=== PATIENT | male | born 1950 | race Caucasian/White ===

== ENCOUNTER → 2020-08-09 13:46 | Outpatient (CLI) | payer MEDICAID, SELFPAY ==
--- NOTE | 2020-08-09 13:58 | XR_ITS ---
PROCEDURE: XR HIP LT 2-3V W/PELVIS CLINICAL INDICATION: LT hip pain COMPARISON: No exams were available for comparison FINDINGS: There is cortical collapse of the left femoral head with osteoarthritic changes of the left hip and subchondral cystic changes. There is mild lateral subluxation of the left femoral head by approximately 10 mm. Subchondral cystic and sclerotic changes are present involving the left femoral head. The right hip has an unremarkable appearance. IMPRESSION: Cortical collapse of the left femoral head superiorly with subchondral cystic changes sclerosis and lateral subluxation of the hip. This could be an end stage avascular necrosis versus severe osteoarthritic change of the hip with cortical collapse. Dictated by: Kareem Harris MD 08/09/2020 15:57 Kareem Harris MD in [facility] 08/09/2020 15:57
== END ==
LOC: RAD 13:53
PROVIDERS: PCP Family Medicine; Visit Provider Orthopaedic Surgery
DX: M25.552 Pain in left hip (principal)
CPT/HCPCS: 73502

== ENCOUNTER → 2021-01-03 13:33 | Outpatient (CLI) | payer MEDICARE, SELFPAY ==
--- NOTE | 2021-01-03 13:33 | CT_ITS ---
PROCEDURE: CT HIP LT WO CON CLINICAL HISTORY: left hip preop for total hip arthroplasty COMPARISON: CR XR HIP LT 2-3V W/PELVIS from 08/09/2020 CR XR HIP LT 2-3V W/PELVIS from 01/03/2021 TECHNIQUE: Axial images obtained with sagittal and coronal reformats. All CT scans at the facility use one or more dose reduction, viz: automated exposure control, ma/kV adjustment per patient size (including targeted exams where dose is matched to indication, i.e. head), or iterative reconstruction technique. FINDINGS: The CT bone windows reveal severe flattening and deformity of the left femoral head and severe narrowing of the joint space with subcortical cystic degenerative changes. The large acetabular subcortical cysts are noted measuring up to 3 centimeters in greatest length. And there is surrounding osteopenia. IMPRESSION: Left femoral head collapse and subluxation with poor structural integrity of the surrounding bony structures. Dictated by: Julia Chase MD 01/03/2021 18:50 Julia Chase MD in [facility] 01/03/2021 18:50
--- NOTE | 2021-01-03 14:14 | XR_ITS ---
PROCEDURE: XR HIP LT 2-3V W/PELVIS CLINICAL INDICATION: LT hip replacement pre-op COMPARISON: CR XR HIP LT 2-3V W/PELVIS from 08/09/2020 FINDINGS: There is severe far advanced osteoarthritic change left hip with flattening of the femoral head with partial collapse and prominent subchondral cystic change and overall sclerosis and slight lateral subluxation of the femoral head in relationship to the roof of the acetabulum. The changes are basically stable from the previous pelvis film 08/09/2020 the right hip is normal. The SI joints and symphysis pubis appear normal. 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 Manish Mabry MD 01/03/2021 17:35 Dr. Manish Mabry MD in [facility] 01/03/2021 17:35
[2021-01-03 17:15] LABS: Basophils # 0.1 K/mm3 (0-0.2); Basophils % 0.5 % (0.1-2.0); Eosinophils # 0.1 K/mm3 (0.0-0.4); Eosinophils % 1.6 % (0.1-12.0); Hematocrit 39.7 % (42.0-52.0); Hemoglobin 12.9 g/dL (14.1-18.0); Lymphocytes # 2.2 K/mm3 (0.7-4.5); Lymphocytes % 25.4 % (10-50); Mean Corpuscular HGB Conc 32.6 g/dL (31.8-35.4); Mean Corpuscular Hemoglobin 28.5 pg (27.0-31.2); Mean Corpuscular Volume 87.4 fl (80-94); Mean Platelet Volume 7.4 fl (7.4-10.4); Monocytes # 0.6 K/mm3 (0.1-1.0); Monocytes % 6.9 % (1.7-9.3); Neutrophils # 5.6 K/mm3 (1.8-7.8); Neutrophils % 65.5 % (37.0-80.0); Platelet Count 276 K/mm3 (142-424); Red Blood Count 4.54 M/mm3 (4.60-6.20); Red Cell Distribution Width 13.8 % (11.5-17.5); White Blood Count 8.6 K/mm3 (4.8-10.8)
[2021-01-03 17:19] LABS: Activated Partial Thrombo Time 25.8 seconds (23.6-34.0); INR 1.03 (0.9-1.1); Prothrombin Time 11.4 seconds (9.4-11.8)
[2021-01-03 20:20] LABS: Chloride 103 mmol/L (98-107); Sodium 137 mmol/L (136-145)
[2021-01-03 20:23] LABS: Blood Urea Nitrogen 21 mg/dl (9-20); Estimated Glomerular Filt Rate 74 ml/min (>60); GFR (African American) 89 ML/MIN (>60)
[2021-01-03 20:24] LABS: Calcium 10.2 mg/dl (8.4-10.2); Carbon Dioxide 28 mmol/L (22.0-30.0); Glucose 99 mg/dl (74-100)
== END ==
LOC: RAD 13:33
PROVIDERS: PCP Family Medicine; Visit Provider Orthopaedic Surgery
DX: Z01.818 Encounter for other preprocedural examination; M16.12 Unilateral primary osteoarthritis, left hip; Z51.81 Encounter for therapeutic drug level monitoring
CPT/HCPCS: 36415; 73502; 73700; 80048; 85025; 85610; 85730; 87081

== ENCOUNTER → 2021-01-03 14:45 | Outpatient (CLI) | payer MEDICARE, SELFPAY | PROVIDERS: PCP Family Medicine; Visit Provider Orthopaedic Surgery | DX: Z01.818 Encounter for other preprocedural examination (principal) ==

== ENCOUNTER → 2021-01-06 09:40 | Outpatient (CLI) | payer MEDICARE, SELFPAY | PROVIDERS: PCP Family Medicine; Visit Provider Orthopaedic Surgery | DX: Z01.818 Encounter for other preprocedural examination (principal); Z20.822 Contact with and (suspected) exposure to COVID-19; M16.12 Unilateral primary osteoarthritis, left hip | CPT/HCPCS: U0003 ==

== ENCOUNTER 2021-01-07 06:01 | Day surgery (SDC) | payer MEDICARE, SELFPAY ==
[2020-12-31 13:07] VITALS: BMI 34.2
--- NOTE | 2021-01-06 14:49 | SW/DCPLANNER ---
Addendum entered by Carmelita Zhang 01/13/21 12:56: Jose with [facility] has stated that she has spoke with patient and will take him once he is medically stable for discharge. Patients surgery is planned for tomorrow. Original Note: I have attempted to contact this patient regarding total hip surgery tomorrow. Patient did not answer at this time. I will follow up with patient at time of admission.
[2021-01-07] VITALS (8 sets, daily range): BP systolic 153–189; BP diastolic 66–91; PULSE 66–78; RESP 18; TEMP 36.6–37.1; O2SAT 97–99
[2021-01-07 07:13] LABS: Chloride 108 mmol/L (98-107); Sodium 140 mmol/L (136-145)
[2021-01-07 07:16] LABS: Blood Urea Nitrogen 21 mg/dl (9-20); Calcium 9.7 mg/dl (8.4-10.2); Carbon Dioxide 25 mmol/L (22.0-30.0); Creatinine Clearance Estimated 113 mL/min (50-200); Estimated Glomerular Filt Rate 83 ml/min (>60); GFR (African American) 101 ML/MIN (>60); Glucose 118 mg/dl (74-100)
--- NOTE | 2021-01-07 07:17 | HMH.ANESCL ---
[facility] Anesthesia Checklist - Patient Identification Patient Identification: Arm Band, Verbal (Name & ) - Structural Data Admitted From: Home Planned Operative Procedure/s: left total hip Consent for Planned Operative Procedure(s) Verified: Yes Verified Documents: Surgical Consent - Additional verifications Anesthesia Reactions: No Hx Blood Transfusions: No Blood Transfusion Reaction: No - Anesthesia Plan Anesthesia Risk discussed: Yes Anesthesia Plan: Verified ASA Class: III Anesthesia Type: MAC w/Spinal [facility] History I have reviewed the patient's past medical history: Yes Medical History: Reports:: Hyperlipidemia, Hypertension Denies:: Cancer, Diabetes Mellitus Type 1, Diabetes Mellitus Type 2, MRSA, Seizures *Have you ever received a pneumonia vaccine?: No *Have you received a flu vaccine this season?: No Other Medical History: Reports: Arthritis. Denies: Blood Transfusion Reaction Anesthesia experience/problems:: none Other Surgeries: Yes: No Previous Surgery Amputation: No Fractures: No - *Social History Last grade of school completed: High school graduate Smoking Status: Current every day smoker Tobacco Type: cigarettes # Packs/Day (cigarettes): 1 Alcohol Intake: never Substance Use Type: denies use *Occupational Status:: retired *Travel in the last 8 weeks: None Family Hx:: No significant family history
[2021-01-07 07:22] LABS: C-Reactive Protein 55.1 mg/L (0-4); Erythrocyte Sedimentation Rate 54 mm/hr (0-20)
--- NOTE | 2021-01-07 08:45 | P.PCN_ITS ---
[facility] Procedure Note Procedure Note:: Procedure Note: Date of Procedure: January 07, 2021 Pre-procedure diagnosis: degenerative joint disease L hip Post-procedure diagnosis: same Procedure: L hip aspiration Performed by: Roula Hendrix MD Final Inspector Balance Wheel/s: none Anesthesia: local; 5cc 1% lidocaine w/o epinephrine Estimated Blood Loss: none History of present illness: 69-year-old gentleman with severe DJD L hip. He reports chronic pain in this hip, and was previously seen by a another surgeon who recommended hip replacement, but said he would not do this in a smoker. The patient reports a history of hypertension, which he takes medication for. No history of RA or other autoimmune disease, no immunosuppresive medications. Lisinopril ?hydrochlorothiazide is his only medication. He does occasionally take meloxicam as needed for discomfort. No known drug allergies. 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 He does occasionally consume alcohol. He has never had a steroid injection in the hip. Denies chest pain or shortness of breath with exertion. Denies any recent fevers or chills, no chest pain or shortness of breath. No known exposure to COVID-19 or any recent respiratory infections or symptoms. No previous infection reported in this hip. Pre-operative XR showed severe destruction of the femoral head and erosion into the acetabulum, and CT scan revealed large cavitary defects of the superior acetabulum. He was brought in for LORNA this morning but pre-operative ESR/CRP were elevated and the decision was made to postpone surgery until infection could be ruled out. The decision was made to instead sterilely prep the hip and perform fluoroscopic-guided aspiration of the hip and send the fluid for studies to rule out infection. I discussed the risks of the procedure with the patient, including bleeding, bruising or swelling at the aspiration site. The patient vocalized understanding and provided informed consent for the procedure. Procedure Note: The patient was identified in preoperative holding and consent reviewed and signed by both myself and the patient, all questions were answered. The patient was placed supine on the fluoroscopy table in the operative room and the L hip exposed. The anterior groin/hip and proximal thigh were prepped with chlorhexidine. Timeout was performed. Next, the c-arm was brought in over the patient?s hip and a picture taken to confirm adequate visualization of the joint. I donned a pair of sterile surgical gloves; the remainder of the procedure was performed in a sterile fashion. An 18G spinal needle was held over the hip to approximate my desired entry point on the skin, on a line between the ASIS and the greater trochanter. Once this was established, a 25G needle was used to infiltrate injection site and estimated needle track with 5cc 1% lidocaine w/o epinephrine. Once the aspiration site was anesthetized, the spinal needle was advanced through the same puncture site and deeper towards the hip joint, aimed medially at a 30 degree angle. Using fluoro, it was confirmed that the needle was advanced until it was at the level of the femoral neck. The stylus was removed from the spinal needle and a sterile 20cc syringe attached. 20cc of bloody fluid was aspirated from the L hip. The spinal needle was removed from the hip and a band-aid was placed over the injection site. The fluid was placed into a sterile specimen cup, where it will be sent for cell count with differential, gram stain, culture and crystals. Specimens: none Condition/Disposition: good / home Complications: none
--- NOTE | 2021-01-07 08:59 | XR_ITS ---
PROCEDURE: XR HIP LT 2-3V W/PELVIS CLINICAL INDICATION: LT HIP ASP IN O.R. COMPARISON: CR XR HIP LT 2-3V W/PELVIS from 01/03/2021 FINDINGS: Fluoroscopy time: 9 seconds. Single images submitted showing a needle in place overlying the anterior aspect of the hip joint. IMPRESSION: Intraoperative hip aspiration with fluoro guidance Dictated by: Kareem Harris MD 01/07/2021 16:55 Kareem Harris MD in [facility] 01/07/2021 16:55
[2021-01-08 15:10] LABS: Color,Fluid Red (Yellow); Eosinophils,Fluid 0 % (Not Estab.); Lymphocytes,Fluid 16 % (Not Estab.); Macrophages,Fluid 9 % (Not Estab.); Nucleated cells, Syn. Fluid 271 cells/uL (0-200); Polys,Fluid 75 % (Not Estab.); RBC,Fluid 138000 /uL (Not Estab.)
== END 2021-01-07 09:10 | disposition home or self-care (01) ==
PROVIDERS: PCP Family Medicine; Visit Provider Orthopaedic Surgery
DX: M17.12 Unilateral primary osteoarthritis, left knee; Z79.899 Other long term (current) drug therapy; I10 Essential (primary) hypertension; Z72.0 Tobacco use
CPT/HCPCS: 20610; 73502; 76000; 80048; 85651; 86140; 86850; 87070; 87205; 89051

== ENCOUNTER → 2021-01-13 11:54 | Outpatient (CLI) | payer MEDICARE, SELFPAY ==
[2021-01-13 11:58] LABS: Microscopic, Urine URINE MICROSCOPIC (MICROSCOPIC)
[2021-01-13 12:51] LABS: Appearance,Urine CLEAR (Clear); Bilirubin,Urine Negative (Negative); Blood, Urine Negative (Negative); Color,Urine YELLOW (Yellow); Glucose,Urine (UA) Negative (Negative); Ketones,Urine Negative (Negative); Leukocyte Esterase,Urine Negative (Negative); Nitrate,Urine Negative (Negative); Protein,Urine 1+ (Negative); Specific Gravity, Urine 1.025 (1.005-1.030); Urobilinogen,Urine 0.2 EU/dl (0.2)
[2021-01-13 13:02] LABS: Bacteria,Urine Trace /lpf; Squamous Epithelial Cell,Urine Occasional #/hpf (0-5)
[2021-01-13 13:06] LABS: Prothrombin Time 10.7 seconds (9.4-11.8)
[2021-01-13 13:16] LABS: C-Reactive Protein 2.7 mg/L (0-4)
[2021-01-13 14:04] LABS: Erythrocyte Sedimentation Rate 26 mm/hr (0-20)
== END ==
PROVIDERS: Visit Provider Orthopaedic Surgery
DX: M16.9 Osteoarthritis of hip, unspecified (principal); Z01.818 Encounter for other preprocedural examination; I82.409 Acute embolism and thrombosis of unspecified deep veins of unspecified lower extremity; Z48.89 Encounter for other specified surgical aftercare; U07.1 COVID-19; Z20.822 Contact with and (suspected) exposure to COVID-19
CPT/HCPCS: 36415; 81001; 85610; 85651; 86140; 86850; U0003

== ENCOUNTER 2021-02-04 06:30 | Observation (INO) | payer MEDICARE, SELFPAY ==
[2021-01-09 11:13] VITALS: BMI 34.2
--- NOTE | 2021-01-14 07:43 | SUR.PREOP ---
PT ARRIVED AT 0600 FOR SX , CAROLINE DE GUZMAN CALLED LAB FOR PCR 'PENDING' RESULT SPOKE WITH JOSELUIS. PCR WAS POSITIVE . CAROLINE DE GUZMAN NOTIFIED LISANDRA GAMBINO AND DR VAZQUEZ. DR VAZQUEZ SPOKE WITH PT.
--- NOTE | 2021-01-14 07:57 | PC.NURSE ---
604 RECEIVED A CALL FROM HOLLY IN LAB.SHE STATED THAT JOSÉ MANUEL MACHADO FROM [facility] HAD CALLED HER REQUESTING RESULTS ON COVID SWAB ON THIS PT BECAUSE IN COMPUTER THE RESULTS READ PENDING. LAB TOLD PREOP THAT THE RESULT WAS POSITIVE.JOSELUIS THEN CALLED THIS NURSE LETTING HER KNOW WHAT HAD HAPPENED CONCERNING CALL FROM [facility] .SHE ALSO TOLD THIS NURSE THAT PT IS ALREADY HERE SITTING IN [facility]. THIS NURSE CALLED AND SPOKE TO JOSÉ MANUEL FROM [facility] AND SHE STATED THAT SHE HAD CALLED AND THAT DR. VAZQUEZ WAS GOING TO PLACE A CALL TO AND DISCUSS THIS CASE. SPOKE WITH JOSÉ MANEUL FEW MINUTES LATER AND SHE STATED SHE HAD TAKEN PT TO NEGATIVE PRESSURE ROOM AND THAT WAS TALKING TO PT
[2021-02-04] VITALS (22 sets, daily range): BP systolic 129–168; BP diastolic 50–83; PULSE 65–85; RESP 12–19; TEMP 36.1–37; O2SAT 90–99; BMI 34.9
[2021-02-04 07:18] LABS: Basophils # 0.1 K/mm3 (0-0.2); Basophils % 0.6 % (0.1-2.0); Eosinophils # 0.3 K/mm3 (0.0-0.4); Eosinophils % 3.5 % (0.1-12.0); Hematocrit 37.4 % (42.0-52.0); Hemoglobin 12.2 g/dL (14.1-18.0); Lymphocytes # 1.9 K/mm3 (0.7-4.5); Lymphocytes % 23.3 % (10-50); Mean Corpuscular HGB Conc 32.5 g/dL (31.8-35.4); Mean Corpuscular Hemoglobin 28.2 pg (27.0-31.2); Mean Corpuscular Volume 86.5 fl (80-94); Mean Platelet Volume 7.9 fl (7.4-10.4); Monocytes # 0.8 K/mm3 (0.1-1.0); Monocytes % 9.5 % (1.7-9.3); Neutrophils # 5.2 K/mm3 (1.8-7.8); Neutrophils % 63.1 % (37.0-80.0); Platelet Count 284 K/mm3 (142-424); Red Blood Count 4.32 M/mm3 (4.60-6.20); Red Cell Distribution Width 13.5 % (11.5-17.5); White Blood Count 8.3 K/mm3 (4.8-10.8)
[2021-02-04 07:33] LABS: Anion Gap 12.5 mEq/L (5-15); Blood Urea Nitrogen 24 mg/dl (9-20); Calcium 10.1 mg/dl (8.4-10.2); Carbon Dioxide 31 mmol/L (22.0-30.0); Chloride 99 mmol/L (98-107); Creatinine Clearance Estimated 103 mL/min (50-200); Estimated Glomerular Filt Rate 66 ml/min (>60); GFR (African American) 80 ML/MIN (>60); Glucose 120 mg/dl (74-100); Potassium 4.5 mmoL/L (3.5-5.1); Sodium 138 mmol/L (136-145)
--- NOTE | 2021-02-04 09:16 | SUR.OPER ---
Prior to arrival to OR,Pt had presence of decubitis R buttox in process of healing with L buttox with slight opening.
--- NOTE | 2021-02-04 09:24 | SUR.OPER ---
Pt arrived to the OR with presence of decubitis to bilateral buttocks. L buttock had approximately a 1cm decubitus in stages of healing, not currently open. R buttock had decubitus with small 1.25cm opening. No drainage or tunneling noted.
--- NOTE | 2021-02-04 09:53 | P.PN_ITS ---
[facility] Anesthesia Checklist - Patient Identification Patient Identification: Arm Band - Structural Data Admitted From: Home Planned Operative Procedure/s: Left LORNA Consent for Planned Operative Procedure(s) Verified: Yes - Additional verifications Anesthesia Reactions: No Hx Blood Transfusions: No Blood Transfusion Reaction: No - Airway Assessment C-Spine Mobility Assessed: Yes TMJ Mobility Assessed: Yes Dentition: Poor Dentition - Neurological Assessment Level of Consciousness: Awake, Alert Hx Seizures: No Numbness or tingling in extremities: No - Anesthesia Plan Anesthesia Risk discussed: Yes (Pt. agrees to proceed with SAB and GETA if needed) ASA Class: III Anesthesia Type: Spinal [facility] History Medical History: Reports:: Hyperlipidemia, Hypertension Denies:: Cancer, Diabetes Mellitus Type 1, Diabetes Mellitus Type 2, Internal Pacemaker, MRSA, Seizures *Have you ever received a pneumonia vaccine?: No *Have you received a flu vaccine this season?: No Other Medical History: Reports: Arthritis. Denies: Blood Transfusion Reaction Anesthesia experience/problems:: NAC Other Surgeries: Yes: No Previous Surgery. No: Pacemaker Amputation: No Fractures: No - *Social History Last grade of school completed: High school graduate Smoking Status: Current every day smoker Tobacco Type: cigarettes # Packs/Day (cigarettes): 1 Alcohol Intake: former Substance Use Type: denies use *Occupational Status:: retired Housing: house *Travel in the last 8 weeks: None Family Hx:: No significant family history
--- NOTE | 2021-02-04 11:22 | XR_ITS ---
PROCEDURE: XR HIP LT 2-3V W/PELVIS CLINICAL INDICATION: s/p L LORNA COMPARISON: CR XR HIP LT 2-3V W/PELVIS from 01/03/2021 CR XR HIP LT 2-3V W/PELVIS from 01/07/2021 FINDINGS: The prosthetic acetabulum is well seated within the [place] acetabulum and anchored by 2 threaded screws. The hip arthroplasty is well seated within the acetabulum and the medullary stem is in good position in the proximal femur. Minimal postsurgical soft tissue changes are noted. IMPRESSION: Satisfactory postop appearance left total hip arthroplasty Dictated by: Dr. Manish Mabry MD 02/04/2021 12:22 Dr. Manish Mabry MD in [facility] 02/04/2021 12:22
--- NOTE | 2021-02-04 11:29 | HMH.ORTHHP ---
*Admission Date: 02/04/21 *Reason for consult:: s/p L LORNA *History of present illness: 70-year-old gentleman with chronic L hip pain. He has had left hip pain on and off for several years but has recently increased in severity over the last 6 months. He believes he is ready for hip replacement, as he has been told he has significant arthritis of the hip in the past. He saw another surgeon who recommended hip replacement, but said he would not do this in a smoker. The patient reports a history of hypertension, which he takes medication for. He does occasionally take meloxicam as needed for discomfort. No known drug allergies. 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 He has never had a steroid injection in the hip. Denies chest pain or shortness of breath with exertion. He has received medical clearance by his primary care physician (Thais) and quality assurance technician (Lesa). He has been cleared to stop his aspirin preoperatively by his quality assurance technician. His hip pain has made it increasingly difficult to not only stand but to walk or perform any activities of daily living. He has had to start using a wheelchair. Denies any recent fevers or chills, no chest pain or shortness of breath. No known exposure to COVID-19 or any recent respiratory infections or symptoms. He is , lives with adult children. He smokes 1/2 to 1 pack of cigarettes per day and has for the last 30 years. He also uses smokeless tobacco but denies recreational drug use. He does occasionally consume alcohol. I discussed the risks and benefits of the surgery at length, in addition to the expected perioperative course, hospital stay and need for postoperative physical therapy. We also discussed the risks of surgery, which include but are not limited to: bleeding, infection, intraoperative fracture, neurovascular damage including postoperative foot drop, periprosthetic fracture postoperatively, postoperative hip dislocation, need for possible revision surgery in the future, wound healing complications due to his status as a smoker, and the possibility of continued pain and/or disability despite surgery. The patient vocalized understanding and informed consent was obtained. Surgery was initially scheduled for 01/07/21 but cancelled to work up for infection as his inflammatory markers were significantly elevated. L hip aspiration revealed no infection with analysis of both cell count and culture. He was rescheduled for 01/14/21 but his pre-operative covid swab was positive. He has had no symptoms of covid infection and quarantined for 2 weeks; rescheduled for L LORNA today. L LORNA was performed without complication. EBL 200cc, IVF 2750cc (LR), 500cc colloid, UOP 400cc. Received TXA x2 doses, 2g Ancef + 2g Vanc. Pre-op MRSA swab positive, patient thinks he took his bactroban and used hibiclens wash. [facility] History I have reviewed the patient's past medical history: Yes Medical History: Reports:: Hyperlipidemia, Hypertension Denies:: Cancer, Diabetes Mellitus Type 1, Diabetes Mellitus Type 2, Internal Pacemaker, MRSA, Seizures *Have you ever received a pneumonia vaccine?: No *Have you received a flu vaccine this season?: No Other Medical History: Reports: Arthritis. Denies: Blood Transfusion Reaction Anesthesia experience/problems:: NAC Other Surgeries: Yes: No Previous Surgery. No: Pacemaker Amputation: No Fractures: No - *Social History Last grade of school completed: High school graduate Smoking Status: Current every day smoker Tobacco Type: cigarettes # Packs/Day (cigarettes): 1 Alcohol Intake: former Substance Use Type: denies use *Occupational Status:: retired Housing: house *Travel in the last 8 weeks: None Family Hx:: No significant family history Review of Systems - Review of Systems Review of systems:: pertinent systems reviewed and negative unless documented below Meds Home Medications Medication Instructions Recorded Confirmed Ty
--- NOTE | 2021-02-04 11:44 | HMH.OPNOTE ---
Date of procedure: 02/04/21 Pre-op Diagnosis:: L hip degenerative joint disease Post-op Diagnosis:: L hip degenerative joint disease Procedure performed:: L total hip arthroplasty Surgeon:: Roula Hendrix MD Bed Machine Operator(s):: CHELO Jeffers SEARCH ENGINE MARKETING MANAGER:: Other (Rene Iyer) Anesthesia: GETA, spinal Estimated blood loss (mL): 200 Clinical Note:: 70-year-old gentleman with chronic L hip pain. He has had left hip pain on and off for several years but has recently increased in severity over the last 6 months. He believes he is ready for hip replacement, as he has been told he has significant arthritis of the hip in the past. He saw another surgeon who recommended hip replacement, but said he would not do this in a smoker. The patient reports a history of hypertension, which he takes medication for. He does occasionally take meloxicam as needed for discomfort. No known drug allergies. 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 He has never had a steroid injection in the hip. Denies chest pain or shortness of breath with exertion. He has received medical clearance by his primary care physician (Thais) and data entry specialist (Lesa). He has been cleared to stop his aspirin preoperatively by his data entry specialist. His hip pain has made it increasingly difficult to not only stand but to walk or perform any activities of daily living. He has had to start using a wheelchair. Denies any recent fevers or chills, no chest pain or shortness of breath. No known exposure to COVID-19 or any recent respiratory infections or symptoms. He is , lives with adult children. He smokes 1/2 to 1 pack of cigarettes per day and has for the last 30 years. He also uses smokeless tobacco but denies recreational drug use. He does occasionally consume alcohol. I discussed the risks and benefits of the surgery at length, in addition to the expected perioperative course, hospital stay and need for postoperative physical therapy. We also discussed the risks of surgery, which include but are not limited to: bleeding, infection, intraoperative fracture, neurovascular damage including postoperative foot drop, periprosthetic fracture postoperatively, postoperative hip dislocation, need for possible revision surgery in the future, wound healing complications due to his status as a smoker, and the possibility of continued pain and/or disability despite surgery. The patient vocalized understanding and informed consent was obtained. Surgery was initially scheduled for 01/07/21 but cancelled to work up for infection as his inflammatory markers were significantly elevated. L hip aspiration revealed no infection with analysis of both cell count and culture. He was rescheduled for 01/14/21 but his pre-operative covid swab was positive. He has had no symptoms of covid infection and quarantined for 2 weeks; rescheduled for L LORNA today. Operative findings:: IMPLANTS: Acetabulum = Redapt cup 60mm, 2 screws (25mm + 30mm) OR3O dual mobility bearing; 60mm oxinium liner, 46mm poly insert, 28 +4 oxinium head Femur = Polar stem size 5 (press fit) Operative note:: The patient was identified in preoperative holding and the L hip signed by myself. Consent was verified with the patient and all questions answered. He was then taken to the operating room where spinal anesthesia was administered by SEARCH ENGINE MARKETING MANAGER while the patient remained on his cart. After the spinal was completed he was transferred to the OR table; spinal did not appear to take and he still had sensation below the waist, so he was converted to general endotracheal anesthesia. Once the patient was asleep he was placed in the right lateral decubitus position; all bony prominences were well-padded. 2g Ancef and 2g vancomycin were infused intravenously. SCD was placed on the bottom non-operative leg, and the left hip was prepped and draped in the usual sterile fashion. Timeout was performed, identifying the correct pat
--- NOTE | 2021-02-04 11:53 | HMH.ANESI ---
[facility] Anesthesia Record Part I Intake, IV Amount: 3,250 Estimated blood loss (mL): 200 Urine output (mL): 400 Blood Pressure: 155/67 SaO2: 95 Pulse Rate: 77 Respiratory Rate: 12 Temperature: 97 F Patient is:: Drowsy, Stable Stable to PACU at:: 11:24
--- NOTE | 2021-02-04 12:18 | PC.NURSE ---
Pt arrived to floor at this time.
--- NOTE | 2021-02-04 12:58 | HMH.HP ---
*Admission Date: 02/04/21 *Chief complaint: Left Total hip replacement; Medical management consult *History of present illness: Mr. Dumont is a 70-year-old male with history of primary osteoarthritis of his left hip. Taken to the OR today for left total hip replacement. Patient tolerated the procedure well. Medicine consulted for medical management of chronic conditions including hypertension, diabetes. On assessment this afternoon, patient denies significant pain. Nerve block still effective at this time. Denies chest pain, shortness of breath, confusion, nausea or vomiting. Has recently eaten a snack without any difficulty. Still feeling a little groggy from anesthesia but overall feeling well. [facility] History I have reviewed the patient's past medical history: Yes Medical History: Reports:: Hyperlipidemia, Hypertension Denies:: Cancer, Diabetes Mellitus Type 1, Diabetes Mellitus Type 2, Internal Pacemaker, MRSA, Seizures *Have you ever received a pneumonia vaccine?: No *Have you received a flu vaccine this season?: No Other Medical History: Reports: Arthritis. Denies: Blood Transfusion Reaction Anesthesia experience/problems:: NAC Other Surgeries: Yes: No Previous Surgery, Colonoscopy. No: Pacemaker Amputation: No Fractures: No - *Social History Last grade of school completed: High school graduate Smoking Status: Current every day smoker Tobacco Type: cigarettes # Packs/Day (cigarettes): 1 Alcohol Intake: former Alcohol Intake Frequency:: 3 or more drinks per day Substance Use Type: denies use *Occupational Status:: employed Housing: house *Travel in the last 8 weeks: None Family Hx:: Cancer, Heart Attack, Stroke Review of Systems - Review of Systems Review of systems:: pertinent systems reviewed and negative unless documented below (14 point review of systems performed, pertinent positives and negatives as per HPI) Meds Home Medications Medication Instructions Recorded Confirmed Type lisinopril 20 1 tab PO DAILY tab 08/09/20 02/04/21 History mg-hydrochlorothiazide 25 mg tablet meloxicam 15 mg tablet 15 mg PO DAILY tab 08/09/20 02/04/21 History aspirin 81 mg tablet,delayed 81 mg PO DAILY 12/27/20 02/04/21 History release metoprolol succinate 25 mg 25 mg PO DAILY 12/27/20 02/04/21 History tablet,extended release 24 hr rosuvastatin 10 mg tablet 10 mg PO DAILY 12/27/20 02/04/21 History Hydrocod/Acet 5/325 mg [[place] 1 tab PO BIDP PRN 02/04/21 02/04/21 History 5/325mg tablet] Allergies Allergy/AdvReac Type Severity Reaction Status Date / Time No Known Drug Allergies Allergy Verified 02/04/21 06:45 Exam Vital signs and Labs for Last 24 Hours: Temp Pulse Resp BP Pulse Ox 97.0 F L 77 16 155/67 H 94 L 02/04/21 12:34 02/04/21 12:34 02/04/21 12:34 02/04/21 12:34 02/04/21 12:34 Laboratory Results - last 24 hr 02/04/21 07:04: Blood Type O Positive, Antibody Screen Negative, Crossmatch (AHG) See Detail 02/04/21 07:04: WBC 8.3, RBC 4.32 L, Hgb 12.2 L, Hct 37.4 L, MCV 86.5, MCH 28.2, MCHC 32.5, RDW 13.5, Plt Count 284, MPV 7.9, Neut % (Auto) 63.1, Lymph % (Auto) 23.3, [place] % (Auto) 9.5 H, Eos % (Auto) 3.5, Baso % (Auto) 0.6, Neut # (Auto) 5.2, Lymph # (Auto) 1.9, [place] # (Auto) 0.8, Eos # (Auto) 0.3, Baso # (Auto) 0.1 02/04/21 07:04: Sodium 138, Potassium 4.5, Chloride 99, Carbon Dioxide 31 H, Anion Gap 12.5, BUN 24 H, Creatinine 1.10, Estimated Creat Clear 103, Estimated GFR 66, Est GFR ( Amer) 80, Glucose 120 H, Calcium 10.1 02/04/21 07:04: Blood Type Cancelled, Antibody Screen Cancelled I & O for Last 24 hours: Intake & Output 02/01/21 02/02/21 02/03/21 02/04/21 23:59 23:59 23:59 23:59 Intake Total 3350 / 3350 Output Total 500 / 500 Balance 2850 / 2850 - Constitutional no acute distress, obese - *Routine HEENT Exam Head: Present: normocephalic Eye: Present: EOMI, PERRL ENT: Present: mucous membranes moist - *Routine Neck Exam Present: supple.
--- NOTE | 2021-02-04 13:11 | SW/DCPLANNER ---
Addendum entered by Carmelita Zhang 02/05/21 09:37: Patient worked with PT this morning and therapist (Quan) stated that patient could return home with home health and family assistance. I spoke with patient this morning and he stated that he does have family with him 07/06. Patient stated that he would prefer to return home with home health services (no preference). I have informed Jenifer that patient will now return home. Patient stated that he has a rollator walker and wheel chair at home. Addendum entered by Carmelita Zhang 02/04/21 13:53: PT/OT recommendation is placement at this time: patient information has been faxed to [facility]. I will follow up in the AM. Original Note: I have spoke with patient and patients family member regarding discharge plans once medically stable. Patient stated that he intends on returning home with assistance from family and home health services. Patients family member discussed idea of [facility] for short term rehab. I explained that PT/OT will evaluate patient then give recommendation. Patient agreed with plan and is agreeable to [facility] if needed at time of discharge. I will follow up with: patient, family, and [facility] tomorrow.
--- NOTE | 2021-02-04 13:45 | HMH.PTEV ---
Physical Therapy Evaluation Rehab PT IP Evaluation Start: 02/04/21 11:14 Freq: ONCE Status: Active Protocol: Document 02/04/21 13:38 PWBELLA (Rec: 02/04/21 13:45 PWBELLA [id number]) Subjective/History History History This is the initial IP PT evaluation for Raad Dumont. Pt is a 70 y/o male admitted to [facility] s/p L LORNA. Pt had hx of severe degenerative arthritis in L hip w/ failed conservative management. Pt elected to have L LORNA to improve function. Pt lives in trailer w/ son who works. Pt was using wheel chair and walker for moving prior to surgery. Subjective Subjective Pt c/o dizziness w/ sitting EOB and standing - no c/o pain but does c/o paresthesia still in LLE Rehab PT IP Eval Objective Appearance Patient Behavior Appropriate,Cooperative Patient Orientation Person,Place,Time Difficulty following instructions none Speech Pattern Clear,Appropriate Ambulation Patient Able to Ambulate No Balance Ability to Arise Unable Sitting Balance Leans or slides in chair Standing Balance Unsteady Dynamic Sitting Balance Ability Fair Dynamic Standing Balance Ability Poor Transfers Bed Transfer Ability Moderate x 2 (50% assist) Sit to Stand Bed Transfer Ability Moderate x 2 (50% assist) ROM LLE PT ROM Status ABN Abnormal ROM Comment hip precautions MMT LLE PT MMT ABN Abnormal MMT Grade 3-/5 grossly Rehab PT IP prob,goals,plan Problems Date of Evaluation: 02/04/21 PT IP Problems Bed Mobility,Transfers,Gait, Balance,Self care,Safety Rehab Potential Rehab Potential Fair Equipment Needs Assistive Devices Rolling / Wheeled Walker Plan PT Intervention Plan Bed Mobility,Transfers,Gait, Balance,Self care,Safety, Therapeutic Exercise PT Plan Frequency BID Duration LOS Discharge Goals Bed Transfer Ability Moderate x 2 (50% assist) Sit to Stand Chair Transfer Ability Moderate x 2 (50% assist) Ambulation Assistive Device Rolling Walker Ambulation Distance (feet) 25 Discharge Plan PT Discharge Plan Pt meena
--- NOTE | 2021-02-04 13:55 | HMH.OTEV ---
OT Inpatient Evaluation Rehab OT IP Evaluation Start: 02/04/21 11:14 Freq: ONCE Status: Complete Protocol: Document 02/04/21 13:41 JARROD (Rec: 02/04/21 13:55 [id number] Rehab OT IP Assessment Subjective History Pt is a 70 yo male who was admitted this morning for a L THR due to chronic hip pain which has recently progressed. Pt recenlty began using a w/c due to hip pain, pt reports he was able to walk prior to surgery, but used a walker. Pt reports he lives in a trailer w/ his son who works outside the home. Pt reports that prior to the surgery he needed help dressing and showering. 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 Pt has a medical Hx of hyperlipidemia, hypertension, and arthritis. Subjective Did I do good? Pt was partially reclined in bed upon arrival. Pt's nephew was visiting, but stepped out during session. Pt scooted legs to EOB w/ Song x1. Pt sat up at EOB w/ minAx2. Pt reported feeling dizzy so pt sat at EOB w/ CGA for ~2 min. While sitting, pt removed his gownand donned a new gown w/ modAx2. Pt stood from EOB w/ modAx2. Pt stood for ~1 min w/ minAx2. Pt reported feeling a little dizzy while standing. Pt sat back at EOB w/ modAx2. Pt laid back in bed w/ modAx2. Pt was left w/ call light and all other needs in reach. Pt was co-treated w/ PT. Objective Patient Orientation Person,Place,Birthday,Year Bed Mobility bed mobility-scooting,bed mobility - supine/sit,bed mobility - rolling Assist Level Moderate x 2 (50% assist) Upper Body Dressing Ability Assistance X1 decrease in enduran
--- NOTE | 2021-02-04 14:23 | HMH.PHAVTE ---
[facility] Pharmacy VTE Monitoring - Patient Demographics Admission date: 02/04/21 Report Date: 02/04/21 Time: 14:24 Allergies/Adverse Reactions: Patient Allergies No Known Drug Allergies Allergy (Verified 02/04/21 06:45) Height: 1.85 m Weight: 120.259 kg Patient Problems: Current Active Problems Hypertension (Acute) Hyperlipidemia (Acute) Degenerative joint disease (DJD) of hip (Acute) Tobacco dependence (Acute) - VTE Risk Labs: VTE Related Lab Results Hgb 12.2 g/dL (14.1-18.0) L 02/04/21 07:04 Hct 37.4 % (42.0-52.0) L 02/04/21 07:04 Plt Count 284 K/mm3 (142-424) 02/04/21 07:04 BUN 24 mg/dl (9-20) H 02/04/21 07:04 Creatinine 1.10 mg/dl (0.66-1.25) 02/04/21 07:04 Estimated Creat Clear 103 mL/min (50-200) 02/04/21 07:04 - Prophylaxis VTE Prophylaxis Ordered?: Yes Types of VTE Prophylaxis: IPCS Thigh High Location of Applied Device: Right Leg
--- NOTE | 2021-02-04 14:26 | HMH.PHAINT ---
MEDICATION RECONCILIATION COMPLETED ON PATIENT USING EXTERNAL FILL HISTORY FROM PHARMACY. -SANIYA SWAIN, SHALINID
--- NOTE | 2021-02-04 14:40 | PC.WOUNDNOTE ---
Wound Location: lt buttock Length: 0.5 cm Width:0.25 cm Depth: Pain and/or tenderness Y/N:yes Color: Cloudy/milky [place] Red Odor Y/N:no Dressing applied to area
--- NOTE | 2021-02-04 14:43 | PC.WOUNDNOTE ---
Wound Location: intergluteal cleft Length:0.25 cm Width:0.25 cm Pain and/or tenderness Y/N:tender Color: [place] Dressing applied to area
--- NOTE | 2021-02-04 16:39 | PC.NURSE ---
Pt is A&Ox4. Abductor pillow remains in place while in bed. Wise cath remains in place and is draining clear, yellow urine per gravity. Pt has c/o lt hip pain x1 this shift, medicated per MAR with favorable results. PT educated on use of IS and benefits of using, IS @ best= 1,000cc's. Lung sounds CTA. Pt has been a q2h turn this shift. x2 decubitus ulcers noted on bottom, dressings applied and are CDI. No other acute changes or complaints at this time.
[2021-02-05] VITALS (7 sets, daily range): BP systolic 130–166; BP diastolic 46–83; PULSE 69–98; RESP 16–20; TEMP 36.1–37.8; O2SAT 91–97; BMI 35.1
--- NOTE | 2021-02-05 03:02 | PC.NURSE ---
1941 oral pain meds given at 2044, pt rang out and stated the pain was no better, repositioned with no relief IV pain medication given at 2103
--- NOTE | 2021-02-05 06:23 | PC.NURSE ---
pt is AxOx4, has rested well t/o shift, has had pain medication 3 times per JAN, lungs CTA, remains on room air, O2 sats 91-93%, abductor pillow remains in place, dressing C/D/I, has had urine output since removal of catheter on previous shift
[2021-02-05 06:27] LABS: Anion Gap 9.3 mEq/L (5-15); Blood Urea Nitrogen 23 mg/dl (9-20); Carbon Dioxide 26 mmol/L (22.0-30.0); Chloride 103 mmol/L (98-107); Creatinine Clearance Estimated 115 mL/min (50-200); Estimated Glomerular Filt Rate 83 ml/min (>60); GFR (African American) 101 ML/MIN (>60); Glucose 127 mg/dl (74-100); Potassium 4.3 mmoL/L (3.5-5.1); Sodium 134 mmol/L (136-145)
[2021-02-05 06:38] LABS: Basophils % 0.2 % (0.1-2.0); Eosinophils % 0.1 % (0.1-12.0); Hematocrit 30.8 % (42.0-52.0); Lymphocytes # 1.7 K/mm3 (0.7-4.5); Lymphocytes % 12.3 % (10-50); Mean Corpuscular HGB Conc 33.8 g/dL (31.8-35.4); Mean Corpuscular Hemoglobin 28.5 pg (27.0-31.2); Mean Corpuscular Volume 84.4 fl (80-94); Mean Platelet Volume 7.9 fl (7.4-10.4); Monocytes # 1.4 K/mm3 (0.1-1.0); Monocytes % 9.7 % (1.7-9.3); Neutrophils # 10.9 K/mm3 (1.8-7.8); Neutrophils % 77.6 % (37.0-80.0); Platelet Count 231 K/mm3 (142-424); Red Blood Count 3.65 M/mm3 (4.60-6.20); Red Cell Distribution Width 13.3 % (11.5-17.5)
[2021-02-05 07:33] LABS: Calcium 8.5 mg/dl (8.4-10.2)
[2021-02-05 07:34] LABS: Hemoglobin 10.4 g/dL (14.1-18.0)
--- NOTE | 2021-02-05 08:29 | HMH.ACPN2 ---
Internal Medicine - PN: Subj *Date: 02/05/21 *Time: 08:29 Interval history: Internal medicine consult follow-up note: Patient did well overnight, minimal hip pain, is a little uncomfortable in bed. Alert, pleasant and talkative. Exam Vital signs and Labs for Last 24 Hours: Temp Pulse Resp BP Pulse Ox 99.1 F 98 H 20 151/64 H 91 L 02/05/21 08:00 02/05/21 08:00 02/05/21 08:00 02/05/21 08:00 02/05/21 08:00 Laboratory Results - last 24 hr 02/05/21 06:05: WBC 14.0 H D, RBC 3.65 L, Hgb 10.4 L D, Hct 30.8 L, MCV 84.4, MCH 28.5, MCHC 33.8, RDW 13.3, Plt Count 231, MPV 7.9, Neut % (Auto) 77.6, Lymph % (Auto) 12.3, [place] % (Auto) 9.7 H, Eos % (Auto) 0.1, Baso % (Auto) 0.2, Neut # (Auto) 10.9 H, Lymph # (Auto) 1.7, [place] # (Auto) 1.4 H, Eos # (Auto) 0.0, Baso # (Auto) 0.0 02/05/21 06:05: Sodium 134 L, Potassium 4.3, Chloride 103, Carbon Dioxide 26, Anion Gap 9.3, BUN 23 H, Creatinine 0.90, Estimated Creat Clear 115, Estimated GFR 83, Est GFR ( Amer) 101 D, Glucose 127 H, Calcium 8.5 D I & O for Last 24 hours: Intake & Output 02/02/21 02/03/21 02/04/21 02/05/21 11:59 11:59 11:59 11:59 Intake Total 3250 / 3250 2114 / 2114 Output Total 400 / 400 100 / 100 Balance 2850 / 2850 2013 Weight 265 lb 2.011 oz Narrative: Alert, pleasant, oriented x3. ENT exam clear. No JVD. Lungs are clear, patient after some coaxing is able to pull 1750 mL on the incentive spirometer. Abdomen obese but soft. Extremity exam per orthopedics. Assessment and Plan (1) Status post total hip replacement, left Status: Acute Category: Surgical Code(s): Z96.642 - Presence of left artificial hip joint (2) Hypertension Status: Chronic Qualifiers: Hypertension type: essential hypertension Qualified Code(s): I10 - Essential (primary) hypertension Category: Medical Code(s): I10 - Essential (primary) hypertension (3) Hyperlipidemia Status: Chronic Qualifiers: Hyperlipidemia type: mixed hyperlipidemia Qualified Code(s): E78.2 - Mixed hyperlipidemia Category: Medical Code(s): E78.5 - Hyperlipidemia, unspecified (4) Degenerative joint disease (DJD) of hip Status: Chronic Qualifiers: Osteoarthritis type: primary Category: Medical Code(s): M16.9 - Osteoarthritis of hip, unspecified (5) Tobacco dependence Status: Chronic Category: Medical Code(s): F17.200 - Nicotine dependence, unspecified, uncomplicated - Assessment and plan all Dx Assessment and Plan for all problems:: Overall patient seems to be doing well. No changes in plan from a medical perspective. Continue pulmonary toilet, blood pressure medications and PT/OT. I encourage patient to think about a skilled care bed for rehab.
--- NOTE | 2021-02-05 08:58 | HMH.ANESII ---
[facility] Anesthesia Record Part II Discharge Time: 12:14 Destination: Medical Surgical Department PACU nurse assessment reviewed?: Yes Patient Condition:: Good Anesthesia Complications:: None Swallowing reflex intact?: Yes Cyanosis?: No Blood Pressure: 166/83 Pulse Rate: 70 Temperature: 97 F Mental Status: Alert & Oriented Pain level:: 0 Nausea and/or vomitting:: None Intake, IV Amount: 0
--- NOTE | 2021-02-05 10:10 | HMH.ORTHPN ---
Subjective Date: 02/05/21 Time: 09:00 Principal diagnosis: s/p L LORNA Interval history: The patient is doing well this morning. He has some pain in the L hip, but already improved from the pain he lived with pre-operatively. Afebrile, vitals stable overnight. WBC is slightly elevated this morning at 14. No chest pain, no shortness of breath, no abdominal pain or dysuria. Has been doing well with PT; SNF was recommended but the patient would really like to return home if possible. PN: Obj Ex Vital signs: Temp Pulse Resp BP Pulse Ox 97 F L 70 20 166/83 H 91 L 02/05/21 08:59 02/05/21 08:59 02/05/21 08:00 02/05/21 08:59 02/05/21 08:00 - Constitutional no acute distress - Routine HEENT Exam Head: Present: normocephalic Eye: Present: EOMI ENT: Present: mucous membranes moist - Routine Neck Exam Present: supple, trachea midline - Routine Respiratory Exam Absent: respiratory distress, wheezes - Routine Cardiovascular Exam Present: RRR - Routine Abdominal Exam Present: soft. Absent: tenderness - Routine Extremities Exam Comments: abduction pillow in place L hip dressing c/d/i, no strikethrough +DF/PF/EHL LLE SILT distally LLE in all distributions L calf soft, non-tender, compressible palpable pedal pulses LLE, skin pink/warm - Routine Skin Exam Present: warm - Routine Neurological Exam Present: alert, oriented X3, moving all extremities, normal tone, vision grossly intact, hearing grossly intact, normal speech. Absent: sensory deficit, motor deficit, altered mental status - Routine Psychiatric Exam Present: normal affect - Urinary Catheter Management Wise Cath placed during this visit: yes, but has since been removed by the nurse Urethral indwelling: No Insertion date: 02/04/21 Removal date: 02/04/21 Progress Note: A&P (1) Status post total hip replacement, left Status: Acute (2) Hypertension Status: Chronic (3) Hyperlipidemia Status: Chronic (4) Degenerative joint disease (DJD) of hip Status: Chronic (5) Tobacco dependence Status: Chronic Assessment and Plan for All Diagnoses:: 70yo M POD 1 s/p L LORNA -- WBAT LLE, posterior hip precautions -- hip abduction pillow while in bed -- PT/OT to continue -- polar care device to ice L hip -- finish 24hr IV prophy antibiotics (ancef) -- DVT prophy: aspirin 81mg BID x6 weeks -- continue yee meds, including home meloxicam; continue scheduled tylenol + PRN oxycodone for pain control -- SCDs BLE -- encourage IS 10x/hr while awake -- Dr. Gonzáles on consult for medical management -- care management consult for dispo planning; anticipate d/c home with home health tomorrow
[2021-02-05 11:41] LABS: Microscopic,Cath URINE MICROSCOPIC (MICROSCOPIC)
[2021-02-05 12:08] LABS: Appearance,Urine/Cath CLEAR (Clear); Bilirubin,Cath Negative (Negative); Blood, Urine/Cath Negative (Negative); Color,Urine/Cath YELLOW (Yellow); Glucose,Urine/Cath (UA) Negative (Negative); Ketones,Urine/Cath Negative (Negative); Leukocyte Esterase,Cath Negative (Negative); Nitrate,Cath Negative (Negative); Protein,Urine/Cath TRACE (Negative); Specific Gravity, Urine/Cath 1.015 (1.005-1.030); Urobilinogen,Cath 0.2 EU/dl (0.2)
--- NOTE | 2021-02-05 18:01 | PC.NURSE ---
Pt has been pleasant this shift. Pt got up to chair for most of the afternoon w/ PT/OT assistance. Pt has c/o hip pain x1 this shift, PRN meds administered w/ favorable results. Abductor pillow remains in place while in bed. Polar pack remains in place on lt hip. IS @ best 1750 cc's. No other acute changes or complaints at this time.
--- NOTE | 2021-02-06 03:45 | PC.NURSE ---
No acute changes overnight. Pt on room air, lungs CTA. Pt able to ambulate with stand by assist and walker to BR. Pt c/o pain in hip, pain meds given x2 per JAN. Hip incision drsg CDI. VSS, call light in reach, no concerns at this time.
[2021-02-06 03:55] VITALS: BP 166/66; PULSE 79; RESP 17; TEMP 37.8; O2SAT 94
[2021-02-06 05:05] VITALS: BMI 34.5
[2021-02-06 06:44] LABS: Anion Gap 9.9 mEq/L (5-15); Blood Urea Nitrogen 19 mg/dl (9-20); Calcium 8.8 mg/dl (8.4-10.2); Carbon Dioxide 27 mmol/L (22.0-30.0); Chloride 100 mmol/L (98-107); Creatinine Clearance Estimated 113 mL/min (50-200); Estimated Glomerular Filt Rate 95 ml/min (>60); GFR (African American) 115 ML/MIN (>60); Glucose 111 mg/dl (74-100); Potassium 3.9 mmoL/L (3.5-5.1); Sodium 133 mmol/L (136-145)
[2021-02-06 06:45] LABS: Basophils % 0.2 % (0.1-2.0); Eosinophils % 0.1 % (0.1-12.0); Hematocrit 30.6 % (42.0-52.0); Hemoglobin 10.4 g/dL (14.1-18.0); Lymphocytes # 2.1 K/mm3 (0.7-4.5); Lymphocytes % 16.7 % (10-50); Mean Corpuscular HGB Conc 34.1 g/dL (31.8-35.4); Mean Corpuscular Hemoglobin 28.5 pg (27.0-31.2); Mean Corpuscular Volume 83.6 fl (80-94); Mean Platelet Volume 7.7 fl (7.4-10.4); Monocytes # 1.4 K/mm3 (0.1-1.0); Monocytes % 10.7 % (1.7-9.3); Neutrophils # 9.2 K/mm3 (1.8-7.8); Neutrophils % 72.3 % (37.0-80.0); Platelet Count 243 K/mm3 (142-424); Red Blood Count 3.65 M/mm3 (4.60-6.20); Red Cell Distribution Width 13.6 % (11.5-17.5); White Blood Count 12.7 K/mm3 (4.8-10.8)
[2021-02-06 07:35] VITALS: BP 157/73; PULSE 75; RESP 17; TEMP 37.1; O2SAT 98
[2021-02-06 08:00] VITALS: PULSE 75; RESP 17; O2SAT 98
--- NOTE | 2021-02-06 08:00 | HMH.ACPN2 ---
Internal Medicine - PN: Subj *Date: 02/06/21 *Time: 08:00 Interval history: Internal medicine follow-up consult note: Patient doing well, respiratory status great. Exam Vital signs and Labs for Last 24 Hours: Temp Pulse Resp BP Pulse Ox 98.7 F 75 17 157/73 H 98 02/06/21 07:35 02/06/21 07:35 02/06/21 07:35 02/06/21 07:35 02/06/21 07:35 Laboratory Results - last 24 hr 02/04/21 08:19: Urine Color Yellow, Urine Appearance Clear, Urine pH 7.0, Ur Specific [place] 1.015, Urine Protein Trace, Urine Glucose (UA) Negative, Urine Ketones Negative, Urine Blood Negative, Urine Nitrate Negative, Urine Bilirubin Negative, Urine Urobilinogen 0.2, Ur Leukocyte Esterase Negative, Urine RBC None, Urine WBC None, Ur Squamous Epith Cells None, Urine Bacteria None 02/06/21 05:59: WBC 12.7 H, RBC 3.65 L, Hgb 10.4 L, Hct 30.6 L, MCV 83.6, MCH 28.5, MCHC 34.1, RDW 13.6, Plt Count 243, MPV 7.7, Neut % (Auto) 72.3, Lymph % (Auto) 16.7, [place] % (Auto) 10.7 H, Eos % (Auto) 0.1, Baso % (Auto) 0.2, Neut # (Auto) 9.2 H, Lymph # (Auto) 2.1, [place] # (Auto) 1.4 H, Eos # (Auto) 0.0, Baso # (Auto) 0.0 02/06/21 05:59: Sodium 133 L, Potassium 3.9, Chloride 100, Carbon Dioxide 27, Anion Gap 9.9, BUN 19, Creatinine 0.80, Estimated Creat Clear 113, Estimated GFR 95, Est GFR ( Amer) 115, Glucose 111 H, Calcium 8.8 I & O for Last 24 hours: Intake & Output 02/03/21 02/04/21 02/05/21 02/06/21 11:59 11:59 11:59 11:59 Intake Total 3250 / 3250 2594 / 2594 1320 / 1320 Output Total 400 / 400 350 / 350 2200 / 2200 Balance 2850 / 2850 2244 / 2244 -880 / -880 Weight 265 lb 2.011 oz 260 lb 8 oz Narrative: Good air movement. No coughing or wheezing. Pulse rate regular. No visible edema. Neurologically intact. Assessment and Plan (1) Status post total hip replacement, left Status: Acute Category: Surgical Code(s): Z96.642 - Presence of left artificial hip joint (2) Hypertension Status: Chronic Qualifiers: Hypertension type: essential hypertension Qualified Code(s): I10 - Essential (primary) hypertension Category: Medical Code(s): I10 - Essential (primary) hypertension (3) Hyperlipidemia Status: Chronic Qualifiers: Hyperlipidemia type: mixed hyperlipidemia Qualified Code(s): E78.2 - Mixed hyperlipidemia Category: Medical Code(s): E78.5 - Hyperlipidemia, unspecified (4) Degenerative joint disease (DJD) of hip Status: Chronic Qualifiers: Osteoarthritis type: primary Category: Medical Code(s): M16.9 - Osteoarthritis of hip, unspecified (5) Tobacco dependence Status: Chronic Category: Medical Code(s): F17.200 - Nicotine dependence, unspecified, uncomplicated - Assessment and plan all Dx Assessment and Plan for all problems:: Doing very nicely, doing well from my perspective, okay for discharge medically.
--- NOTE | 2021-02-06 09:04 | PC.NURSE ---
Pt would benefit from the use of a rolling walker due to instability related to hip fracture.
--- NOTE | 2021-02-06 11:04 | HMH.ORTHPN ---
Subjective Date: 02/06/21 Time: 10:00 Principal diagnosis: s/p L LORNA Interval history: The patient is doing well this morning. He was able to get up to go to the bathroom by himself last night. Continue to work with physical therapy has improved his gait and balance, and they now feel he is appropriate for discharge home with home physical therapy. Vitals have been stable, no fevers or chills. His pain has been well controlled and he is looking forward to going home today. He is urinating independently and has moved his bowels since surgery. PN: Obj Ex Vital signs: Temp Pulse Resp BP Pulse Ox 98.7 F 75 17 157/73 H 98 02/06/21 07:35 02/06/21 07:35 02/06/21 07:35 02/06/21 07:35 02/06/21 07:35 - Constitutional no acute distress - Routine HEENT Exam Head: Present: normocephalic Eye: Present: EOMI ENT: Present: mucous membranes moist - Routine Neck Exam Present: supple, trachea midline - Routine Respiratory Exam Absent: respiratory distress, wheezes - Routine Cardiovascular Exam Present: RRR - Routine Abdominal Exam Present: soft. Absent: tenderness - Routine Extremities Exam Comments: patient sitting in bedside chair L hip dressing c/d/i, no strikethrough dressing removed, incision L hip c/d/i; no periwound erythema or tenderness, no drainage +DF/PF/EHL LLE SILT distally LLE in all distributions L calf soft, non-tender, compressible palpable pedal pulses LLE, skin pink/warm - Routine Skin Exam Present: warm - Routine Neurological Exam Present: alert, oriented X3, moving all extremities, normal tone, vision grossly intact, hearing grossly intact, normal speech. Absent: sensory deficit, motor deficit, altered mental status - Routine Psychiatric Exam Present: normal affect - Urinary Catheter Management Wise Cath placed during this visit: yes, but has since been removed by the nurse Urethral indwelling: No Insertion date: 02/04/21 Removal date: 02/04/21 Progress Note: A&P (1) Status post total hip replacement, left Status: Acute (2) Hypertension Status: Chronic (3) Hyperlipidemia Status: Chronic (4) Degenerative joint disease (DJD) of hip Status: Chronic (5) Tobacco dependence Status: Chronic Assessment and Plan for All Diagnoses:: 70yo M POD 2 s/p L LORNA -- WBAT LLE, posterior hip precautions -- hip abduction pillow while in bed -- PT/OT to continue -- polar care device to ice L hip -- DVT prophy: aspirin 81mg BID x6 weeks -- continue yee meds, including home meloxicam; continue scheduled tylenol + PRN oxycodone for pain control -- SCDs BLE -- encourage IS 10x/hr while awake -- Dr. Gonzáles on consult for medical management -- medically appropriate for d/c home today -- care management consult for dispo planning; d/c home with home health PT today. -- f/u with me in the office 02/21/21 at 2:30pm -- written d/c instructions placed on patients chart and all prescriptions sent to pharmacy
--- NOTE | 2021-02-06 11:09 | HMH.DCSUM ---
General - General Admission date:: 02/04/21 Discharge date: 02/06/21 HPI HPI: 70-year-old gentleman with chronic L hip pain. He has had left hip pain on and off for several years but has recently increased in severity over the last 6 months. He believes he is ready for hip replacement, as he has been told he has significant arthritis of the hip in the past. He saw another surgeon who recommended hip replacement, but said he would not do this in a smoker. The patient reports a history of hypertension, which he takes medication for. He does occasionally take meloxicam as needed for discomfort. No known drug allergies. 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 He has never had a steroid injection in the hip. Denies chest pain or shortness of breath with exertion. He has received medical clearance by his primary care physician (Thais) and cloth seconds sorter (Lesa). He has been cleared to stop his aspirin preoperatively by his cloth seconds sorter. His hip pain has made it increasingly difficult to not only stand but to walk or perform any activities of daily living. He has had to start using a wheelchair. Denies any recent fevers or chills, no chest pain or shortness of breath. No known exposure to COVID-19 or any recent respiratory infections or symptoms. He is , lives with adult children. He smokes 1/2 to 1 pack of cigarettes per day and has for the last 30 years. He also uses smokeless tobacco but denies recreational drug use. He does occasionally consume alcohol. I discussed the risks and benefits of the surgery at length, in addition to the expected perioperative course, hospital stay and need for postoperative physical therapy. We also discussed the risks of surgery, which include but are not limited to: bleeding, infection, intraoperative fracture, neurovascular damage including postoperative foot drop, periprosthetic fracture postoperatively, postoperative hip dislocation, need for possible revision surgery in the future, wound healing complications due to his status as a smoker, and the possibility of continued pain and/or disability despite surgery. The patient vocalized understanding and informed consent was obtained. Surgery was initially scheduled for 01/07/21 but cancelled to work up for infection as his inflammatory markers were significantly elevated. L hip aspiration revealed no infection with analysis of both cell count and culture. He was rescheduled for 01/14/21 but his pre-operative covid swab was positive. He has had no symptoms of covid infection and quarantined for 2 weeks; rescheduled for L LORNA today. L LORNA was performed without complication. EBL 200cc, IVF 2750cc (LR), 500cc colloid, UOP 400cc. Received TXA x2 doses, 2g Ancef + 2g Vanc. Pre-op MRSA swab positive, patient thinks he took his bactroban and used hibiclens wash. Hospital Course Hospital Course: The patient did well during his admission and there were no medical complications. Wise was removed on postoperative day 0. Pain medication was available PRN. He worked with physical therapy 2 times daily and was deemed appropriate for d/c home with HHPT. His pain was well-controlled on oral medication and there were no issues pending discharge. Home health physical therapy was arranged. He was seen by Drs. Gonzáles and Calista, who did not see any medical issues that needed to be addressed. He completed 24 hours of prophylactic antibiotics. Aspirin was started on postoperative day 1 for DVT prophylaxis and SCDs were worn throughout the stay. Incentive spirometer was encouraged and used during his stay. He was discharged home on POD 2 with home health PT and scheduled to follow-up with me in 2 weeks. Objective Vital signs: Temp Pulse Resp BP Pulse Ox 98.7 F 75 17 157/73 H 98 02/06/21 07:35 02/06/21 07:35 02/06/21 07:35 02/06/21 07:35 02/06/21 07:35 no acute distress - *Routine HEENT Exam Head: Prese
== END 2021-02-06 12:45 | disposition home health service (06) ==
LOC: 2ND 06:30
PROVIDERS: Admitting Provider Orthopaedic Surgery; PCP Family Medicine; Visit Provider Orthopaedic Surgery
PROC: (CPT 27130; principal; 2021-02-04 07:30)
DX: M16.12 Unilateral primary osteoarthritis, left hip (principal); I10 Essential (primary) hypertension; E78.5 Hyperlipidemia, unspecified; Z72.0 Tobacco use; Z79.899 Other long term (current) drug therapy
CPT/HCPCS: 27130; 36415; 73502; 80048; 81001; 85025; 86850; 96374; 97110; 97116; 97162; 97166; 97530; C1713; C1776; G0378; J0131; J2405; J3370

== ENCOUNTER → 2021-02-21 14:22 | Outpatient (CLI) | payer MEDICARE, SELFPAY ==
--- NOTE | 2021-02-21 14:29 | XR_ITS ---
PROCEDURE: XR HIP LT 2-3V W/PELVIS CLINICAL INDICATION: s/p LT LORNA Follow-up left hip replacement COMPARISON: CT CT HIP LT WO CON from 01/03/2021 CR XR HIP LT 2-3V W/PELVIS from 02/04/2021 FINDINGS: Status post total left hip replacement. There is good alignment. No acute fracture or dislocation is evident. Frontal view of the pelvis shows subchondral lucencies in both acetabular roofs and may be due to prominent subchondral cystic changes. IMPRESSION: Good alignment status post total left hip replacement Dictated by: Kareem Harris MD 02/21/2021 15:58 Kareem Harris MD in [place] 02/21/2021 15:59
== END ==
LOC: RAD 14:25
PROVIDERS: PCP Family Medicine; Visit Provider Orthopaedic Surgery
DX: Z96.642 Presence of left artificial hip joint (principal); M25.552 Pain in left hip
CPT/HCPCS: 73502

== ENCOUNTER → 2021-03-24 15:10 | Outpatient (CLI) | payer MEDICARE, SELFPAY ==
--- NOTE | 2021-03-24 15:13 | XR_ITS ---
PROCEDURE: XR HIP LT 2-3V W/PELVIS CLINICAL INDICATION: s/p LT LORNA COMPARISON: No exams were available for comparison FINDINGS: Total left hip arthroplasty is noted. No acute fractures or dislocations. Prosthesis appears in satisfactory position. Bone density is normal. Minor degenerative changes of the right hip joint and the visualized lumbar spine. No significant soft tissue abnormality. IMPRESSION: Total left hip arthroplasty. No periprosthetic fractures. Dictated by: Sudha Lynch 03/25/2021 09:41 Sudha Lynch in [place] 03/25/2021 09:41
== END ==
LOC: RAD 15:11
PROVIDERS: PCP Family Medicine; Visit Provider Orthopaedic Surgery
DX: Z96.642 Presence of left artificial hip joint (principal); M25.552 Pain in left hip
CPT/HCPCS: 73502

== ENCOUNTER 2021-05-28 17:39 | Emergency (ER) | payer OTHER, SELFPAY ==
[2021-05-28 18:15] VITALS: BMI 37.5
[2021-05-28 18:19] VITALS: BP 136/89; PULSE 78; RESP 21; TEMP 36.8; O2SAT 100; BMI 37.5
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
[2021-05-28 18:56] VITALS: BP 000/00; PULSE 0; RESP 0; TEMP -17.7; TEMP 0
[2021-05-28 19:13] LABS: Ethyl Alcohol < 10 mg/dl (0-10)
[2021-05-28 19:17] LABS: Amphetamine/Metha Screen,Urine Positive ng/ml (<1000); Barbiturates Screen,Urine Negative ng/ml (<200)
[2021-05-28 19:18] LABS: Benzodiazepines Screen,Urine Negative ng/ml (<200)
[2021-05-28 19:19] LABS: Cannabinoid Screen,Urine Negative ng/ml (<50); Cocaine Screen,Urine Negative ng/ml (<300)
[2021-05-28 19:20] LABS: Methadone Screen,Urine Negative ng/ml (<300)
[2021-05-28 19:21] LABS: Opiate Screen,Urine Negative ng/ml (<300); Phencyclidine Screen,Urine Negative ng/ml (<25)
== END 2021-05-28 18:56 | disposition home or self-care (01) ==
PROVIDERS: Emergency Provider Nurse Practitioner; PCP Family Medicine
DX: Z02.83 Encounter for blood-alcohol and blood-drug test (principal); V89.0XXA Person injured in unspecified motor-vehicle accident, nontraffic, initial encounter; Y99.0 Civilian activity done for income or pay
CPT/HCPCS: 36415; 80305; 99203; G0463

== ENCOUNTER → 2021-05-30 13:43 | Outpatient (CLI) | payer MEDICARE, SELFPAY ==
--- NOTE | 2021-05-30 13:47 | XR_ITS ---
PROCEDURE: XR HIP LT 2-3V W/PELVIS CLINICAL INDICATION: s/p LT LORNA COMPARISON: CR XR HIP LT 2-3V W/PELVIS from 03/24/2021 FINDINGS: Status post left hip replacement. Acetabular cup and femoral stem are in good position. No evidence of orthopedic complication. IMPRESSION: Good alignment status post total hip replacement Dictated by: Kareem Harris MD 05/30/2021 14:34 Kareem Harris MD in [place] 05/30/2021 14:34
== END ==
LOC: RAD 13:45
PROVIDERS: PCP Family Medicine; Visit Provider Orthopaedic Surgery
DX: Z96.642 Presence of left artificial hip joint (principal)
CPT/HCPCS: 73502